=== PATIENT | female | born 1950 | race Caucasian/White ===

== ENCOUNTER → 2023-07-01 09:37 | Outpatient (BNVA) | payer MEDICARE, SELFPAY | PROVIDERS: PCP Internal Medicine; Referring Provider Internal Medicine; Visit Provider Student in an Organized Health Care Education/Training Program | DX: M94.261 Chondromalacia, right knee (principal); S83.281A Other tear of lateral meniscus, current injury, right knee, initial encounter; S83.231A Complex tear of medial meniscus, current injury, right knee, initial encounter; X58.XXXA Exposure to other specified factors, initial encounter | CPT/HCPCS: 99204 ==

== ENCOUNTER 2023-07-10 10:50 | Day surgery (SDC) | payer MEDICARE, SELFPAY ==
[2023-07-10] VITALS (9 sets, daily range): BP systolic 116–158; BP diastolic 56–87; PULSE 57–68; RESP 16–18; TEMP 36.3–37; O2SAT 94–99; BMI 34.1
--- NOTE | 2023-07-10 07:39 | W.PM.DSUDISC ---
Date of service: 07/10/23 Time of Service: 07:39 Discharge Plan Disposition Patient Disposition: Home Condition: Good Discharge Details Reason For Visit: R Knee arthroscopy Attending Provider: Alfred Biswas Primary Care Provider: Octavia Sykes Home Meds and New Rx's Prescriptions: New acetaminophen 500 mg tablet 1,000 mg PO TID Qty: 90 0RF hydrocodone-acetaminophen 5-325 mg tablet 1 tab PO Q6H PRN (Reason: pain) Qty: 6 0RF Continued hydrochlorothiazide 25 mg tablet 25 mg PO DAILY ceramides 1,3,6-II [CeraVe] Cream 1 applic topical TID-QID PRN fluocinonide 0.05 % ointment 1 applic topical BID PRN halobetasol propionate 0.05 % cream 1 applic topical DIRECTED calcium carbonate [Oyster Shell Calcium] 500 mg calcium (1,250 mg) tablet 500 mg PO DAILY triamcinolone acetonide 0.1 % cream 1 applic topical DIRECTED cyclosporine 100 mg capsule 100 mg PO DAILY escitalopram oxalate 20 mg tablet 20 mg PO DAILY sodium chloride [Dioni 128] 3.5 GM ointment 1 ea Ophthalmic HS flaxseed oil 1,000 MG capsule 1,000 mg PO DAILY fluticasone propionate 16 GM spray,suspension 1 spray NS BID carboxymethylcellulose sodium [TheraTears] 1 EACH dropperette,gel 1 ea Ophthalmic DIRECTED clindamycin HCl 300 mg capsule 600 mg PO ONCE Patient Comments: 1 hour prior for Dental procedures Discharge Orders Discharge Orders: Discharge Order (Routine); Ordered 07/10/23 Ordered By: Epi Pro DS: Diagnosis Discharge Diagnosis (1) Complex tear of medial meniscus of right knee: Status: Acute (2) Tear of lateral meniscus of right knee: Status: Acute
--- NOTE | 2023-07-10 10:15 | W.ANESPRE ---
General Info Date of Service Date Performed: 07/10/23 Height: 5 ft 7 in Weight: 98.883 kg Body Mass Index (BMI): 34.1 Surgical Procedure: Operation Date: 07/10/23 15:40 Proposed Procedure Side Surgeon p Knee Arthroscopy w/Partial Lateral Menisectomy Right Alfred Biswas MD Meds Allergies and Home Medications Allergies Allergy/AdvReac Type Severity Reaction Status Date / Time Penicillins Allergy Unknown Verified 07/10/23 11:27 amoxicillin [From Augmentin] AdvReac Intermediate Nausea/dizz Verified 07/10/23 11:27 iness clavulanic acid AdvReac Intermediate Nausea/dizz Verified 07/10/23 11:27 [From Augmentin] iness Home Medication Medication Instructions Recorded carboxymethylcellulose sodium 1 % 1 ea ophthalmic (eye) DIRECTED 05/20/17 eye gel in a dropperette (TheraTears) flaxseed oil 1,000 mg capsule 1,000 mg PO DAILY 05/20/17 fluticasone propionate 50 1 spray NS BID 05/20/17 mcg/actuation nasal spray,suspension sodium chloride 5 % eye ointment 1 ea ophthalmic (eye) HS 05/20/17 (Dioni 128) calcium carbonate 500 mg calcium 500 mg PO DAILY 10/05/22 (1,250 mg) tablet (Oyster Shell Calcium) ceramides 1,3,6-II (CeraVe topical 1 applic topical TID-QID PRN 10/05/22 cream) fluocinonide 0.05 % topical 1 applic topical BID PRN 10/05/22 ointment halobetasol propionate 0.05 % 1 applic topical DIRECTED 10/05/22 topical cream triamcinolone acetonide 0.1 % 1 applic topical DIRECTED 10/05/22 topical cream hydrochlorothiazide 25 mg tablet 25 mg PO DAILY 11/07/22 cyclosporine 100 mg capsule 100 mg PO DAILY 05/14/23 escitalopram oxalate 20 mg tablet 20 mg PO DAILY 05/14/23 clindamycin HCl 300 mg capsule 600 mg PO ONCE 07/09/23 acetaminophen 500 mg tablet 1,000 mg (2 x 500 mg) PO TID #90 07/10/23 tabs hydrocodone 5 mg-acetaminophen 325 1 tab PO Q6H PRN pain #6 tabs 07/10/23 mg tablet Current Visit Medications: Current Medications Generic Name Dose Route Start Last Admin Trade Name Vonq PRN Reason Stop Dose Admin Acetaminophen 1,000 mg 07/10/23 06:00 Acetaminophen 500 Mg Tab PO 08/09/23 05:59 PREOP JUMA Acetaminophen 650 mg 07/10/23 07:38 Acetaminophen 325 Mg Tab PO 08/09/23 07:37 Q4H PRN PRN Hydrocodone Bitart/Acetaminophen 0 tab 07/10/23 07:38 Hydrocodone 5/Acetaminophen 325 Tab PO 08/09/23 07:37 Q3H PRN PRN Pain Ringer's Solution 1,000 mls @ 80 mls/hr 07/10/23 06:00 IV 08/08/23 23:59 INFUSION JUMA Cefazolin Sodium/Dextrose 2 gm in 50 mls @ 100 mls/hr 07/10/23 06:00 Ancef Duplex IVPB 08/08/23 23:59 PREOP JUMA IV Miscellaneous Supplies 1 each 07/10/23 06:00 Iv Access IV 08/08/23 23:59 DIRECTED JUMA Sodium Chloride 0 ml 07/10/23 06:00 Normal Saline Flush 10 Ml Syr IV 08/08/23 23:59 PRN PRN Sodium Chloride 0 ml 07/10/23 06:00 Normal Saline 10 Ml Vial IJ 08/08/23 23:59 DIRECTED PRN Sterile Water 0 ml 07/10/23 06:00 Water,Injection,Sterile 10 Ml Vial IJ 08/08/23 23:59 DIRECTED PRN PFSH Active Problems Active Problems: Problem Status Onset Code Complex tear of medial meniscus of right knee S83.231A Tear of lateral meniscus of right knee S83.281A Chondromalacia, right knee M94.261 Sensorineural hearing loss (SNHL) of both ears H90.3 Sensation of fullness in ear H93.8X9 Medical History Medical History Cervical spine fracture from a fall in 04/06/23-in cervical neck brace for 12 weeks 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 Snoring Psoriasiform dermatitis Periodic limb movement disorder (PLMD) Pain in right knee Pain in joint of left shoulder Obesity Lesion of ulnar nerve Lateral epicondylitis Insomnia Infestation by Sarcoptes scabiei alexander hominis Generalized anxiety disorder Fusion of fingers Finger pain Essential hypertension Epigastric pain Cyst and pseudocyst of pancreas 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 Carpal tunnel syndrome of left wrist Benign neoplasm of soft tissue Actinic keratosis Surgical History Surgical History History of eye surgery per referral; Severing of vitreous strands, vitreous face adhesions, sheets, membranes or opacities, laser surgery (one or more stages) , 2002 History of arthroplasty tibial plateau 2017 History of carpal tunnel release History of arthroplasty of knee 2017 History of colonoscopy 2016 // through stoma 2020 History of arthroplasty of left shoulder 2021 History of surgical fusion joint finger(s) unspecified, 2022 Tobacco Smoking/Tobacco Use Status: Never Alcohol Alcohol Intake: current Alcohol intake frequency: 0-2 drinks per day Alcohol type: wine Substance Use Substance use: Never Substance use type: does not use Vital Signs and Lab Results Lab Results Blood Type / Crossmatch: No Data to Display Complete Blood Count: No Data to Display Complete Metabolic Panel: No Data to Display Liver Function Panel: No Data to Display Coagulation Panel: No Data to Display Cardiac Panel: No Data to Display Arterial Blood Gas: No Data to Display Venous Blood Gas: No Data to Display Pancreas Panel: No Data to Display Thyroid Panel: No Data to Display Infectious Disease: No Data to Display Blood Cultures: No Data to Display Toxicology Panel: No Data to Display Imaging and Studies Imaging and Studies Study information below may be from another EMR and interpreted by another provider. Please see original notes in EMR for more complete details. Other Study Summary:: MRI brain reviewed and results in chart Anesthesia Assessment and Plan Anesthesia History Personal History: No History of Anesthesia Complications Family History: No Family History of Anesthesia Complications Exercise Tolerance Exercise Tolerance: Metabolic Equivalents>4 Pertinent Negatives Pertinent Negatives: No Symptoms of GERD, No Major Cardiovascular Symptoms or Complaints, No Major Pulmonary Symptoms or Complaints and No History of CVA/TIA Cardiac & Pulmonary Exam Cardiac Exam: Normal S1/S2 Heart Sounds Pulmonary Exam: Clear Bilateral Breath Sounds Implantable Cardiac Device Does patient have a Pacemaker or an ICD?: No Airway Exam Known Difficult Airway: No Mallampati Class: 3 Mouth Opening: Normal (> 3cm) Thyromental Distance: Less than 3 cm Neck Range of Motion: Limited ROM (Recent cervical fracture, cleared to remove C-collar by [facility] [place] this week) Neck Circumference: Thick Teeth Condition: Normal Dentition ASA Classification ASA Score: ASA 2 Emergency Case?: No NPO Status NPO Status: NPO Clears >2 hours, Solids >8 hours Anesthesia Plan Resuscitation Status: Full Code Anesthesia Technique: General Anesthesia Airway Planned: Endotracheal Tube Monitors Used: Standard Monitors and SedLine Preoperative Comments:: Plan ETT with [place] scope for cervical stability
[2023-07-10] MEDS: Acetaminophen 500 MG TAB 1000 MG PO (11:42)
[2023-07-10] MEDS: Lactated Ringers 1,000 ML 80 ML IV (11:43)
[2023-07-10] MEDS: Bupivacaine 0.5% Pres-Free 30 ML VIAL (13:45)
[2023-07-10] MEDS: ceFAZolin 2 GM/50 ML BAG IVPB (13:47)
--- NOTE | 2023-07-10 15:11 | W.ANESPOSTOP ---
Postoperative Evaluation Date, Time and Location Date Performed: 07/10/23 Time Performed: 15:11 Patient Location: PACU Vital Signs Most Recent Imported Vital Signs: Most Recent Vital Signs Temp Pulse Resp BP Pulse Ox 36.5 C 57 L 18 137/69 94 07/10/23 14:59 07/10/23 14:59 07/10/23 14:59 07/10/23 15:05 07/10/23 14:59 Pain Score Most Recent Pain Score: Most Recent Pain Score Pain Level 3 07/10/23 14:59 Assessment Mental Status: Awake (Alert & Oriented to Patient Baseline) Airway and Respiratory Function: Patent airway with normal (patient baseline) respiratory exam Cardiovascular Function: Hemodynamically Stable Hydration Status: Adequately Hydrated Nausea & Vomiting: No Nausea or Vomiting Pain: Pain is tolerable per patient Peripheral Nerve Block: Patient did not receive a nerve block
--- NOTE | 2023-07-10 17:47 | W.PM.OP ---
Date of service: 07/10/23 Time of Service: 13:30 Operative Note Operative Note DATE OF PROCEDURE: 07/10/23 PRE-OP DIAGNOSIS: Right Lateral Meniscus Tear POST-OP DIAGNOSIS: same (and Right Lateral Compartment Grade IV Chondromalacia) PROCEDURE: Arthroscopic partial lateral meniscectomy SURGEON: Alfred Biswas ANESTHESIA TYPE: General LMA/ETT Refer to Anesthesia Record ESTIMATED BLOOD LOSS: 0 PATHOLOGY: none sent COMPLICATIONS: None Patient was transported to: PACU Patient's condition: stable Indications: I have seen Mely in clinic for symptoms of a meniscus tear. This was confirmed based on MRI and exam findings. Nonoperative measures were exhausted but disability and pain persisted. I discussed knee arthroscopy with meniscal intervention with the patient. I reviewed the risks of the procedure to include, but not limited to, bleeding, infection, pain, stiffness, damage to nerves or vessels, recurrence, blood clot. Despite these risks, the patient elected to proceed. Findings: A diagnostic arthroscopy was performed with the following findings: Suprapatellar Pouch: No significant inflammation, No loose bodies Medial Compartment: Mild fraying of the central portion of the medial meniscus, Intact meniscal root, an area of focal grade III chondromalacia of the posterior?central medial tibia, No loose bodies Notch: ACL and PCL were intact Lateral Compartment: Complex meniscal tear involving the body and the horn extending towards the root with displaced fragments, Intact meniscal root, grade IV chondromalacia about the lateral tibia and lateral femur, No loose bodies Patellofemoral Compartment: Grade II/III chondromalacia of the medial ridge of the trochlea, No apparent patellar maltracking Procedure Description: Mely was greeted in the preoperative holding area where the correct side was identified and marked. The consent was reviewed with the patient and signed. The history and physical was updated. All questions were answered. She was taken back to the operating room. The patient was placed into the supine position on the operating room table. A nonsterile tourniquet was placed high onto the leg but not used. All bony prominences were well padded. Prophylactic antibiotics in the form of cefazolin were administered. The right leg was then prepped with Chloraprep and draped in a standard fashion with stockinette and extremity drape. A timeout to confirm correct identity, side and site, procedure, allergies, anesthesia, and medical concerns was performed. The leg was placed into a pneumatic leg collazo, [id number]. A standard lateral portal was made at the lateral border of the patella tendon in line with the inferior pole of the patella, soft spot. The skin and deep tissue was incised sharply and the blunt trochar was inserted atraumatically. A diagnostic arthroscopy was performed and the findings are listed above. The suprapatellar pouch had moderate laboratory changes. The patellofemoral articulation showed grade II/III chondromalacia of the medial aspect of the trochlea as well as good tracking. The lateral gutter had no loose bodies and the medial gutter had no loose bodies. The knee was brought into some valgus stress in extension to open the medial compartment. A medial portal was made, localized by a spinal needle. The portal was created with an #11 blade through skin and capsule under direct visualization avoiding any meniscal injury. A probe was then inserted into the medial compartment. The medial compartment was fully inspected. The chondral surface of the tibia showed a small area of grade III chondromalacia over the posterior central aspect and the surface of the femur showed no significant chondromalacia. The medial meniscus had mild fraying within the central portion of the medial meniscus. After evaluation, the meniscus was debrided down to a stable base using a series of biters and arthroscopic lila. It was probed afterwards to confirm that the tear had been removed and the meniscus was stable. The notch was then inspected which showed an intact ACL and an intact PCL. The leg was then brought into a figure of 4 position. The lateral compartment was fully inspected with the arthroscope and a probe. The chondral surface of the lateral femur showed areas of full-thickness cartilage loss about the lateral tibia and lateral femur with exposed bone. The lateral meniscus had a complex tear with loose and displaced fragments. After evaluation, the meniscus was debrided down to a stable base using a series of biters and arthroscopic lila. It was probed afterwards to confirm that the tear had been removed and the meniscus was stable. The arthroscope was brought back into the suprapatellar pouch and the leg was in full extension. The knee was thoroughly irrigated with the arthroscopic fluid on high flow and pressure. Inflow was stopped and excess fluid was removed. The wounds were closed with 4-0 Nylon. They were dressed with Xeroform, 4x4 gauze, ABD pad, Kerlix and an KWASI wrap. A cryo-cuff was applied. The patient tolerated the procedure well and was returned to the Same Day Surgery area in a stable condition suffering no known complication.
== END 2023-07-10 16:21 | disposition home or self-care (01) ==
PROVIDERS: PCP Internal Medicine; Visit Provider Student in an Organized Health Care Education/Training Program
PROC: (CPT 29870; principal; 2023-07-10 15:30)
DX: M23.261 Derangement of other lateral meniscus due to old tear or injury, right knee (principal); M94.261 Chondromalacia, right knee
CPT/HCPCS: 29881; J0665; J0690; J1100; J1805; J2001; J2405; J2704

== ENCOUNTER → 2023-07-22 13:40 | Outpatient (BNVA) | payer MEDICARE, SELFPAY | PROVIDERS: PCP Internal Medicine; Referring Provider Internal Medicine | DX: Z47.89 Encounter for other orthopedic aftercare (principal); M94.261 Chondromalacia, right knee ==

== ENCOUNTER → 2023-08-15 14:03 | Outpatient (BNVA) | payer MEDICARE, SELFPAY | PROVIDERS: PCP Internal Medicine; Referring Provider Internal Medicine; Visit Provider Physician Assistant | DX: Z47.89 Encounter for other orthopedic aftercare (principal); M54.50 Low back pain, unspecified ==

== ENCOUNTER → 2025-04-08 12:48 | Outpatient (BNVA) | payer MEDICARE, SELFPAY | PROVIDERS: PCP Internal Medicine; Referring Provider Internal Medicine; Visit Provider Physician Assistant | DX: M17.12 Unilateral primary osteoarthritis, left knee (principal) | CPT/HCPCS: 99213 ==